=== PATIENT | female | born 1985 | race African-American/Black ===

== ENCOUNTER 2024-09-28 04:29 | Emergency (ER) | payer OTHER ==
[~2024-09-28] VITALS: Ht 149.9 cm; Wt 58.6 kg
[2024-09-28 05:00] VITALS: O2SAT 100
[2024-09-28 05:02] VITALS: BP 112/64; PULSE 70; TEMP 98.7; O2SAT 100
[2024-09-28] MEDS ORDERED: DOXY100C5 PO (06:28)
[2024-09-28] MEDS ORDERED: METR-167 PO (06:29)
[2024-09-28] MEDS: DOXYCYCLINE HYCLATE 100MG CAPSULE PO ONE (06:45)
[2024-09-28] MEDS: CEFTRIAXONE SODIUM 1G VIAL IM ONE (06:45)
[2024-09-28 07:00] VITALS: RESP 16
[2024-09-28 08:51] LABS: CLARITY URINE CLEAR (CLEAR); COLOR URINE YELLOW (YELLOW); GLUCOSE URINE NEGATIVE (NEGATIVE); KETONES URINE NEGATIVE (NEGATIVE); LEUKOCYTE ESTERASE URINE NEGATIVE (NEGATIVE); NITRITE URINE NEGATIVE (NEGATIVE); OCCULT BLOOD URINE NEGATIVE (NEGATIVE); PROTEIN URINE NEGATIVE (NEGATIVE); SPECIFIC GRAVITY URINE 1.013 (1.005-1.030); UROBILINOGEN URINE 0.2 E.U./dL (0.2-1.0)
== END 2024-09-28 08:07 | disposition home or self-care (01) ==
LOC: ER 04:29
DX: A64 Unspecified sexually transmitted disease (principal)
CPT/HCPCS: 81003; 81025; 96372; 99284; J0696; Z7610